=== PATIENT | female | born 1965 | race Caucasian/White ===

== ENCOUNTER 2019-11-17 08:07 | Outpatient (CLI) | payer BC, SELFPAY ==
--- NOTE | ~2019-11-17 | MM_ITS ---
EXAMINATION: MM screening cathie BI w edvin HISTORY: Screening mammogram TECHNIQUE: Craniocaudal and mediolateral oblique 3-D tomosynthesis images were obtained and synthetic 2-D images were generated. CAD analysis was submitted and interpreted. COMPARISON: 12/21/2016, 11/06/2015 bilateral digital screening mammogram examinations BREAST PARENCHYMAL COMPOSITION: The breasts are almost entirely fatty. FINDINGS: There is no evidence of suspicious mass, calcification, or architectural distortion to sugg est malignancy in either breast. There has been no suspicious interval change. IMPRESSION: 1. No mammographic evidence of malignancy. 2. Recommend routine screening mammography in one year. BI-RADS Category 1: Negative Reviewed, dictated and finalized at location A.
== END 2019-11-17 08:08 | disposition home or self-care (01) ==
LOC: ANHIMG 08:12
PROVIDERS: PCP Internal Medicine; Visit Provider Internal Medicine
DX: Z12.31 Encounter for screening mammogram for malignant neoplasm of breast (principal)
CPT/HCPCS: 77063; 77067

== ENCOUNTER 2022-05-12 19:34 | Emergency (ER) | payer BC, SELFPAY ==
--- NOTE | ~2022-05-12 | XR_ITS ---
EXAM: XR ankle LT min 3V DATE: 05/12/2022 20:17 HISTORY: fall, swelling to joint; pain/swelling lat Lt ankle . COMPARISON: None available. FINDINGS: Normal mineralization. No fracture or dislocation. No lytic or blastic lesion. Degenerativ e changes at the tibiotalar joint. Achilles and plantar enthesopathy. No erosion or periosteal change . Ankle joint effusion. Soft tissue swelling about the ankle. IMPRESSION: No acute osseous finding in the left ankle. Reviewed, dictated and finalized at location K. GER EXCHANGE
[2022-05-12 19:45] VITALS: BP 134/75; PULSE 84; RESP 16; TEMP 37.6; O2SAT 98
[2022-05-12 22:03] VITALS: PULSE 103; O2SAT 95
--- NOTE | 2022-05-12 22:21 | ED.FALL ---
HPI - Fall General Chief Complaint: Fall Stated Complaint: fall-left ankle pain Time Seen by Provider: 05/12/22 22:01 Source: patient Mode of arrival: wheelchair Limitations: no limitations History of Present Illness HPI Narrative: This is a 56-year-old female that presents to the emergency department for left ankle pain after an injury today. Reports she missed the last step. She twisted her left ankle. She reports lateral ankle pain and swelling that radiates into the calf. Worse with movement and weightbearing and relieved with rest. Reports decreased range of motion in the ankle due to pain. She did not hit her head or lose consciousness. Denies numbness. Related Data Allergies Allergy/AdvReac Type Severity Reaction Status Date / Time niacin Allergy Blister Verified 05/12/22 22:00 Review of Systems Review of Systems: CONSTITUTIONAL: Denies fever MUSCULOSKELETAL: Reports joint pain, or myalgia. NEUROLOGIC: Denies numbness All systems reviewed & are unremarkable except as noted in HPI and below PMFSH Past Medical History Medical History (Updated 05/12/22 @ 22:28 by Perla Casanova PA-C) History of diabetes mellitus History of hyperlipidemia History of hypertension Social History Social History (Updated 05/12/22 @ 22:23 by Perla Casanova PA-C) Substance use: never Exam Narrative: GENERAL: Well-appearing, well-nourished, and in no acute distress. HEAD: Normocephalic, atraumatic. EYES: EOMI. EXTREMITIES: Decreased active range of motion in the left ankle due to pain. Normal DP pulse and normal sensation. Mild swelling about the left lateral malleoli. Range of motion noted in the ankle with Tucker test. Achilles tendon is intact SKIN: Warm, dry, no rash. NEURO: No focal deficits. Alert and oriented x3. PSYCH: Normal mood and affect Course Vital Signs Vital signs: Vital Signs Temperature 99.6 F 05/12/22 19:45 Pulse Rate 84 05/12/22 19:45 Respiratory Rate 16 05/12/22 19:45 Blood Pressure 134/75 05/12/22 19:45 Pulse Oximetry 98 05/12/22 19:45 Oxygen Delivery Room Air 05/12/22 19:45 Temperature 99.6 F 05/12/22 19:45 Pulse Rate 103 H 05/12/22 22:03 Respiratory Rate 16 05/12/22 19:45 Blood Pressure 134/75 05/12/22 19:45 Pulse Oximetry 95 05/12/22 22:03 Oxygen Delivery Room Air 05/12/22 19:45 MDM - Fall MDM Narrative Medical decision making narrative: Patient presents emergency department for left ankle pain after rolling her ankle today. Patient is neurovascularly intact. Left ankle x-ray is without acute osseous abnormalities. Patient placed in an Sal wrap. She does not want to use crutches at this time. She does report that she has a boot at home which she can use. She was instructed on care of ankle sprain. She is to follow-up with her primary care provider. She was given warnings to return to the ER Imaging Data Radiologist's impression: ITS Impressions Ankle X-Ray 05/12/22 20:33 IMPRESSION: No acute osseous finding in the left ankle. Critical Care Time Critical Care Time Critical Care Time: No Discharge Plan Discharge Clinical Impression: Ankle sprain Qualifiers: Encounter type: initial encounter Involved ligament of ankle: unspecified ligament Laterality: left Qualified Code(s): S93.402A - Sprain of unspecified ligament of left ankle, initial encounter Patient Disposition: Home, Self-Care Condition: Stable Instructions: Ankle Sprain (ED) Additional Instructions: Return to the emergency department if you experience fever, redness and swelling of your leg, numbness, or any other symptoms that are concerning to you Wear your boot. Ice and elevate extremity. Pain medication as needed and directed. Follow up with your doctor for further care. Follow-up/Referrals: Jason,Antonio Mayfield MD [Primary Care Provider] - 3 Days
== END 2022-05-12 22:38 | disposition home or self-care (01) ==
PROVIDERS: Emergency Provider Emergency Medicine; PCP Internal Medicine
DX: S93.402A Sprain of unspecified ligament of left ankle, initial encounter (principal); E11.9 Type 2 diabetes mellitus without complications; I10 Essential (primary) hypertension; E78.5 Hyperlipidemia, unspecified; X50.0XXA Overexertion from strenuous movement or load, initial encounter
CPT/HCPCS: 73610; 99283

== ENCOUNTER → 2022-05-25 11:02 | Outpatient (CLI) | payer BC, SELFPAY ==
--- NOTE | ~2022-05-25 | MM_ITS ---
EXAMINATION: MM screening cathie BI w edvin HISTORY: Screening mammogram TECHNIQUE: Craniocaudal and mediolateral oblique 3-D tomosynthesis images were obtained and synthetic 2-D images were generated. CAD analysis was submitted and interpreted. COMPARISON: 11/17/2019, 12/11/2016, 11/2015 bilateral screening mammogram examinations BREAST PARENCHYMAL COMPOSITION: There are scattered areas of fibroglandular density. FINDINGS: There is no evidence of suspicious mass, calcification, or architectural distortion to sugg est malignancy in either breast. There has been no suspicious interval change. IMPRESSION: 1. No mammographic evidence of malignancy. 2. Recommend routine screening mammography in one year. BI-RADS Category 1: Negative Reviewed, dictated and finalized at location A. FARM MANAGER
== END ==
PROVIDERS: PCP Internal Medicine; Visit Provider Internal Medicine
DX: Z12.31 Encounter for screening mammogram for malignant neoplasm of breast (principal)
CPT/HCPCS: 77063; 77067

== ENCOUNTER 2023-10-11 13:44 | Outpatient (CLI) | payer OTHER, SELFPAY ==
--- NOTE | ~2023-10-11 | MM_ITS ---
EXAMINATION: MM screening cathie BI w edvin HISTORY: Screening mammogram TECHNIQUE: Craniocaudal and mediolateral oblique 3-D tomosynthesis images were obtained and synthetic 2-D images were generated. CAD analysis was submitted and interpreted. COMPARISON: 05/25/2022, 11/17/2019 bilateral screening mammogram examinations BREAST PARENCHYMAL COMPOSITION: There are scattered areas of fibroglandular density. FINDINGS: There is no evidence of suspicious mass, calcification, or architectural distortion to sugg est malignancy in either breast. There has been no suspicious interval change. IMPRESSION: 1. No mammographic evidence of malignancy. 2. Recommend routine screening mammography in one year. BI-RADS Category 1: Negative Reviewed, dictated and finalized at location B.
== END 2023-10-11 13:45 ==
PROVIDERS: Visit Provider Internal Medicine
DX: Z12.31 Encounter for screening mammogram for malignant neoplasm of breast (principal)
CPT/HCPCS: 77063; 77067

== ENCOUNTER 2025-02-02 14:46 | Outpatient (CLI) | payer OTHER, SELFPAY ==
--- NOTE | ~2025-02-02 | MM_ITS ---
EXAMINATION: MM screening cathie BI w edvin HISTORY: Screening TECHNIQUE: Craniocaudal and mediolateral oblique 3-D tomosynthesis images were obtained and synthetic 2-D images were generated. CAD analysis was submitted and interpreted. COMPARISON: Comparison to multiple prior studies sequentially, with oldest reviewed study dated 10/2015. BREAST PARENCHYMAL COMPOSITION: There are scattered areas of fibroglandular density. FINDINGS: There is no evidence of suspicious mass, calcification, or architectural distortion to sugg est malignancy in either breast. There has been no suspicious interval change. IMPRESSION: 1. No mammographic evidence of malignancy. 2. Recommend routine screening mammography in one year. BI-RADS Category 1: Negative Reviewed, dictated and finalized at location B.
--- OUTSIDE RECORDS SUMMARY | 2025-02-02 14:51 | XMS_ITS | Clinical Summary ---
Author Organization [facility] Address Formerly [facility] [place] [address] Care Team Providers Care Copra Sampler Name Role Phone Unavailable Primary Care Provider Unavailabl e Social History Tobacco Use Types Packs/Day Years Used Date Smoking Tobacco: Never Assessed Comments Unknown Sex and Gender Information Value Date Recorded Sex Assigned at Not on file Legal Sex Female 4:29 PM CDT Gender Identity Not on file Sexual Orientation Not on file Plan of Treatment Health Maintenance Due Date Last Done Comments Cervical Cancer Screening Pa p Smear (Age 30 to 64) Every 3 Years 1964 Colorectal Cancer Screening Colonoscopy (10 Years) 1964 Annual Physical 09/24/1967 Hepatitis C 1982 DTaP, Tdap and Td Vaccines ( 1 - Tdap) 09/24/1983 Cervical Cancer Screening Pa p with HPV Testing (Age 30 to 64) Every 5 Years 1994 Cervical Cancer Screening with HPV 1994 Mammogram Screening 2004 Pneumococcal Vaccine: 50+ Ye ars (1 of 1 - PCV) 2014 Zoster Vaccines (1 of 2) 2014 COVID-19 Vaccine ( - 2023-2 5 season) 2024 RSV Immunization or 60+ Years (1 - 1-dose 75+ series) 09/24/2039 Meningococcal B Vaccine Aged Out No l onger eligible based on patient's age to complete this topic Meningococcal Vaccine Aged Out No charles cynthia eligible based on patient's age to complete this topic RSV Immunizations Under 20 Months Aged Out No longer eligible based on patient's age to complete this topic
--- OUTSIDE RECORDS SUMMARY | 2025-02-02 14:51 | XMS_ITS | Clinical Summary ---
Author Organization [facility] Address [address] [place] [address] Care Team Providers Care Front Office Java Developer Name Role Phone No, Physician Primary Care Provider [phone] Allergies No known active allergies Medications metoprolol tartrate (LOPRESSOR) 50 mg immediate release tablet 03/30/[address] (PROTONIX) 40 mg EC tablet 06/08/2023 Active lisinopriL (PRINIVIL,ZESTRIL) 40 mg tablet 04/11/2023 Active hydroCHLOROthiazid e (MICROZIDE) 12.5 mg capsule 03/18/2023 Active glimepiride (AMARYL) 2 mg tablet 04/06/2023 Active ezetimibe (ZETIA) 10 mg tablet 03/17/2023 Active atorvastatin (LIPITOR) 40 mg tablet 03/30/2023 Active Active Problems No known active problems Surgical History Surgery Date Site/Laterality Comments ABLATION Medical History Medical History Date Comments High blood cholesterol High blood pressure Diabetes (HCC) Family History Medical History Relation Name Comments Colon cancer Maternal Grandfather Ovarian cancer Mother Lung cancer Mother's Brother Uterine cancer Mother's Sister Relation Name Status Comments Maternal Grandfather Mother Mother's Brother Mother's Sister Social History Tobacco Use Types Packs/Day Years Used Date Smoking Tobacco: Every Day Cigarettes Tobacco Cessation:Ready to Q uit: Not Asked; Counseling Given: Not Answered Humiliation, Afraid, Rape, and Kick questionnair e Answer Date Recorded Within the last year, have y ou been afraid of your partner or ex-partner? No 06/11/2023 Within the last year, have y ou been humiliated or emotionally abused in other ways by your partner or ex-partner? No Within the last year, have y ou been kicked, hit, slapped, or otherwise physically hurt by your partner or ex-partner? No 06/11/2023 Within the last year, have y ou been raped or forced to have any kind of sexual activity by your partner or ex-partner? No 06/11/2023 PHQ-2 Answer Date Recorded PHQ-2 Total Score (If total score is 3 or more points, staff should administer the PHQ-9) 0 06/16/2024 Comments No Sex and Gender Information Value Date Recorded Sex Assigned at Not on file Legal Sex Female 10:31 AM CDT Gender Identity Not on file Sexual Orientation Not on file Obstetrics History Para Term AB IAB SAB Ectopic Multiple Livin g Live Births 1 1 Date Outcome GA Total Labor Labor//3rd Weight Sex Type Anes PTL Carli A1 A5 Name Clin Para C-Secti on Last Filed Vital Signs Vital Sign Reading Time Taken Comments Blood Pressure 120/70 06/16/2024 2:16 PM MOLASSES COLORING OPERATOR Pulse - - Temperature - - Respiratory Rate - - Oxygen Saturation - - Inhaled Oxygen Concentration - - Weight 100.5 kg (221 lb 9.6 oz) 06/16/2024 2:16 PM MOLASSES COLORING OPERATOR Height 162.6 cm (5' 4) 06/11/2023 2:04 PM MOLASSES COLORING OPERATOR Body Mass Index 38.04 06/11/2023 2:04 PM MOLASSES COLORING OPERATOR Plan of Treatment Health Maintenance Due Date Last Done Comments Breast Cancer Screening-Mammogram 1964 Colon Cancer Screening-Colonoscopy 1964 Hepatitis C Screening 1964 DTaP/Tdap/Td Vaccine (1 - Tdap) 09/24/1975 Hepatitis B Screening 1982 Pneumococcal vaccine <65 (1 of 2 - PCV) 09/24/1983 Zoster Vaccine (1 of 2) 2014 Covid-19 Vaccine (4 - 2023-2 5 season) 2024 06/24/2021, 10/20/2020, 09/29/2020 Cervical Cancer Screening 06/11/2024 06/11/2023 Influenza Vaccine (#1) 2025 , 04/30/2023, 04/24/2022, Additional history exists Depression Screening 06/16/2025 06/16/2024, 06/11/20 23 Regular Well Visit/Exam 18-64 06/16/2025 06/16/2024, 06/11/2023 Procedures Procedure Name Priority Date/Time Associated Diagnosis Comments PAP AND HPV, REFLEX TO HPV GENOTYPES Routine 06/11/2023 2:36 PM MOLASSES COLORING OPERATOR Well woman exam from Last 3 Months or Most Recently Relevant to Health Maintenance Results * Pap and HPV, reflex to HPV Genotypes (06/11/2023 2:36 PM MOLASSES COLORING OPERATOR) Clinical indication Comment [facility] - 01 Comment:NEGATIVE FOR INTRAEP ITHELIAL LESION OR MALIGNANCY. Specimen adequacy: Comment [facility] - 01 Comment: Satisfactory for evaluation. Endocervical and/or squamous metaplastic cells (endocervical component) are present. Clinician provided ICD10 Comment [facility] - 01 Comment:Z01.419 Performed by Comment [facility] - 01 Comment:Casandra nunez, Clearing House Clerk (ASCP) . . [facility] - 01 Note: Comment [facility] - 01 Comment: The Pap smear is a screening test designed to aid in the detection of premalignant and malignant conditions of the uterine cervix. It is not a diagnostic procedure and should not be used as the sole means of detecting cervical cancer. Both false-positive and false-negative reports do occur. Test methodology Comment [facility] - 01 Comment: This liquid based ThinPrep(R) pap test was screened with the use of an image guided system. HPV Aptima Negative Negative [facility] 02 Comment: This nucleic acid amplification test detects fourteen high-risk HPV types (16,18,31,33,35,39,45,51,52,56,58,59,66,68) without differentiation. HPV Genotype Reflex Comment [facility] - 01 Comment:Criteria not met, HP V Genotype not performed. Thin prep 06/11/2023 2:36 PM MOLASSES COLORING OPERATOR 06/11/2023 Narrative [facility] - 06/16/2023 8:16 AM MOLASSES COLORING OPERATOR Performed at: - Lab[address] [place] [id number] Film Laboratory Technician: Liliana Garcia MD, Phone: [phone] Performed at: 02 - [facility] [address] [place] [id number] Film Laboratory Technician: Liliana Garcia MD, Phone: [phone] Specimen Comment: No. of containers..01 ThinPrep Vial us Reema Cohen NP LAB CYTOLOGY ORDERABLES Fin al Result [facility] - 01 [facility] 02 from Last 3 Months or Most Recently Relevant to Health Maintenance Insurance [facility] CHOICE PLUS [facility] CHOICE PLUS Care Teams Front Office Java Developer Relationship Specialty Start Date End Date No, Physician PCP - General 03/09/23
--- OUTSIDE RECORDS SUMMARY | 2025-02-02 14:51 | XMS_ITS | Referral Summary ---
Author Organization [facility] Address [address] [place] [address] Care Team Providers Care Inspecting And Testing Lead Hand Name Role Phone No, Physician Primary Care Provider [phone] Allergies No known active allergies Medications metoprolol [...] Active Active Problems No known active problems Social History Tobacco Use Types Packs/Day Years [...] on file Sexual Orientation Not on file Last Filed Vital Signs Vital Sign Reading Time Taken Comments Blood Pressure 120/70 06/16/2024 2:16 PM TRACK SUBWAY REPAIR SUPERVISOR Pulse - - Temperature - - Respiratory Rate - - Oxygen Saturation - - Inhaled Oxygen Concentration - - Weight 100.5 kg (221 lb 9.6 oz) 06/16/2024 2:16 PM TRACK SUBWAY REPAIR SUPERVISOR Height 162.6 cm (5' 4) 06/11/2023 2:04 PM TRACK SUBWAY REPAIR SUPERVISOR Body Mass Index 38.04 06/11/2023 2:04 PM TRACK SUBWAY REPAIR SUPERVISOR Plan of Treatment Not on file Procedures Procedure Name Priority Date/Time Associated Diagnosis Comments PAP AND HPV, REFLEX TO HPV GENOTYPES Routine 06/11/2023 2:36 PM TRACK SUBWAY REPAIR SUPERVISOR Well woman exam from Last 3 Months or Most Recently Relevant to Health Maintenance Results * Pap and HPV, reflex to HPV Genotypes (06/11/2023 2:36 PM TRACK SUBWAY REPAIR SUPERVISOR) Clinical indication Comment [facility] - 01 Comment:NEGATIVE FOR INTRAEP ITHELIAL LESION OR MALIGNANCY. Specimen adequacy: Comment [facility] - 01 Comment: Satisfactory for evaluation. Endocervical and/or squamous metaplastic cells (endocervical component) are present. Clinician provided ICD10 Comment [facility] - 01 Comment:Z01.419 Performed by Comment [facility] - 01 Comment:Casandra nunez, Professional Development Director (ASCP) . . [facility] - 01 Note: [...] not performed. Thin prep 06/11/2023 2:36 PM TRACK SUBWAY REPAIR SUPERVISOR 06/11/2023 Narrative [facility] - 06/16/2023 8:16 AM TRACK SUBWAY REPAIR SUPERVISOR Performed at: - [facility] [id number] Cupola Operator: Liliana Garcia MD, Phone: [phone] Performed at: - [facility] [id number] Cupola Operator: Liliana Garcia MD, Phone: [phone] Specimen Comment: No. of containers..01 ThinPrep Vial Reema Cohen NP LAB CYTOLOGY ORDERABLES Fin al Result Performing Organization Address City/State/[facility] Co de [facility] Number [facility] - 01 [facility] 02 from Last 3 Months or Most Recently Relevant to Health Maintenance Insurance [facility] CHO[facility] PLUS [facility] H[facility]/PPO Address: [facility] [address] [place] [address] [facility] CHOICE PLUS [facility] HMO/PPO Address: [facility] [id number] [place] [id number] Care Teams Inspecting And Testing Lead Hand Relationship Specialty Start Date End Date No, Physician PCP - General 03/09/23
== END 2025-02-02 14:47 | disposition home or self-care (01) ==
LOC: ANHIMG 14:48
PROVIDERS: Visit Provider Nurse Practitioner
DX: Z12.31 Encounter for screening mammogram for malignant neoplasm of breast (principal)
CPT/HCPCS: 77063; 77067